=== PATIENT | male | born 1960 | race Caucasian/White ===

== ENCOUNTER 2021-09-22 17:49 | Outpatient (CLI) | payer BC | END 2021-09-22 17:50 | disposition home or self-care (01) | LOC: BURRAD 17:49 | PROVIDERS: ATTEND Neurological Surgery | DX: M47.12 Other spondylosis with myelopathy, cervical region (principal); S13.180A Subluxation of C7/T1 cervical vertebrae, initial encounter; Z98.1 Arthrodesis status | CPT/HCPCS: 72050 ==